=== PATIENT | female | born 1990 | race Asian ===

== ENCOUNTER 2021-05-06 02:17 | Emergency (ER) | payer OTHER ==
[~2021-05-06] VITALS: Ht 157.5 cm; Wt 63.8 kg
[2021-05-06] MEDS ORDERED: methylPREDNISolone SOD SUCC 125 MG/2 ML ONE (03:24)
[2021-05-06] MEDS ORDERED: DIPHENHYDRAMINE 50 MG/ML, 1ML ONE (03:24)
[2021-05-06] MEDS ORDERED: FAMOTIDINE 20 MG/2 ML ONE (03:27)
[2021-05-06] MEDS ORDERED: methylPREDNISolone SOD SUCC 125 MG/2 ML IVPush ONE (03:30)
[2021-05-06] MEDS ORDERED: DIPHENHYDRAMINE 50 MG/ML, 1ML IVPush ONE (03:30)
[2021-05-06] MEDS ORDERED: FAMOTIDINE 20 MG/2 ML IVPush ONE (03:30)
[2021-05-06 04:00] VITALS: BP 116/70
--- NOTE | 2021-05-06 04:04 | NUR ---
pt ambulated to restroom. states now she is feeling sob and is quite restless in bed. pt on all monitos. 100 percent on RA. redness around body looks significantly better at this time. Erp updated and stated to continue to monitor. pt given blanket and cold water, safety measures in place. will conitnue to monitor
== END 2021-05-06 05:25 | disposition home or self-care (01) ==
LOC: ED 05:15
DX: L50.0 Allergic urticaria (principal)
CPT/HCPCS: 96374; 96375; 99285; J1200; J2930